=== PATIENT | female | born 1940 | race Caucasian/White ===

== ENCOUNTER 2019-05-11 16:58 | Inpatient (IN) | payer OTHER, BC ==
[~2019-05-11] VITALS: Ht 165.1 cm; Wt 62.3 kg
--- NOTE | 2019-05-11 18:10 | NUR ---
ADMITTED WHITE FEMALE PT. FROM [facility] ACCOMPANIED BY 2 AMBULANCE DRIVERS. PT. IS ALERGIC TO OXYCODONE. SHE IS ADMITTED FOR DEMENTIA WITH BEHAVIORAL DISTURBANCES, MDD, FIGHTING WITH STAFF. SHE IS A PT. OF DR. NICOLE BLANCHARD MD. SHE LIVES IN [place], [place]. SHE STATES SHE IS ALTHOUGH NO ONE ACCOMPANIED HER HERE. SHE WAS REPORTED TO BE AMBULATORY BY [facility] BUT WHEN SHE ARRIVED STAFF WITH HER STATED SHE IS STAND BY ASSIST OF 2 PEOPLE AND GETS AROUND IN A W/C. SHE IS ON A RGEULAR DIET. SHE IS ORIENTED X1 OR 2. SHE HAS LAST 6 TO 7 LBS IN THE PAST FEW MONTHS DUE TO POOR APPETITE. SHE REPORTS SHE GETS SHORT OF AIR WITH EXERTION. SHE DENIES A HISTORY OF SUICIDAL THOUGHTS OR ATTEMPTS AND DENIES ETOH OR DRUG USE/ABUSE. IN THE PAST FEW YEARS SHE STATES SHE HAS LOST TWO SIBLINGS. SHE IS CONFUSED AND CANNOT STATE WHERE WE ARE. SHE DOES STATE SHE WEARS GLASSES, FALSE TEETH BUT NO HEARING AIDES. SHE IS WEARING A SANTANA SHIRT, BULE PANTS AND WHITE SOX.
[2019-05-11] MEDS ORDERED: LISINOPRIL2.5 MG PO (18:19)
[2019-05-11] MEDS ORDERED: MIDODRINE HCL2.5 M1 (18:20)
[2019-05-11] MEDS ORDERED: PAXIL40 MG (18:21)
[2019-05-11] MEDS ORDERED: OXYBUTYNIN 5 MG5 M2 ×2 (18:21→18:31)
[2019-05-11 18:22] VITALS: BP 196/92
[2019-05-11] MEDS ORDERED: NUPLAZID34 MG (18:22)
[2019-05-11] MEDS ORDERED: PROPRANOLOL 20M20 M1 (18:26)
[2019-05-11] MEDS ORDERED: SEROQUEL 50 MG50 MG (18:27)
[2019-05-11] MEDS ORDERED: SINEMET 25-1001 EAC1 (18:29)
[2019-05-11] MEDS ORDERED: PLAVIX 75 MG TA75 MG (18:31)
[2019-05-11] MEDS ORDERED: ZETIA10 MG (18:32)
[2019-05-11] MEDS ORDERED: DIAZEPAM 2MG TAB2 MG (18:35)
[2019-05-11 19:42] VITALS: BP 136/72
--- NOTE | 2019-05-12 01:55 | NUR ---
1909-Report received from day nurse and care assumed. The pt. was in her bed awake and cooperative with assessment. A/O name, JACOB, said year was 1971. She said she wanted to stay in bed, awake, and no c.o. pain and fall precautions measures in place. She was anxious and talked about things in the hallway outside her room. Word salad mostly but was talkative with confusion and continued fearful/confused about things in the hallway with suspicion and redirections attempt. She said No leave me alone when asked to touch her to reposition her in bed and tried swinging. She was compliant with VS and said No, to taking her HS meds. She increasingly became more talkative word salad and combative with anyone getting close/touching her. She started to climb out of bed and then was placed into a wheelchair. She was taken to day area and sat with staff and nonredirectable and tried standing up and yelling with agitation. She tried biting, scratched, kicked staff. She was given Geodon 10 mg. IM prn for severe agitation at 2206.
--- NOTE | 2019-05-12 06:46 | NUR ---
She slept 0 hours tonite, Seroquel 50 mg. po prn given at 0130 ineffective. Incontinent urine, restless in the day area at times, talking word salad at times, refused 0700 med. shaking her head. She was combative with ADL's/incontinent care this morning, swinging/kicking/trying to bite.
--- NOTE | 2019-05-12 06:56 | NUR ---
She was combative with ADL's this morning, incontinent. She did not sleep tonite, while sitting in the day shaw. She refused 0700 meds. this morning. Seroquel 50 mg. po prn was not effetive. Fall precautions in place.
[2019-05-12 07:30] VITALS: BP 140/97
--- NOTE | 2019-05-12 09:27 | NUR ---
PT SITTING IN DINNING ROOM. PT WASN'T EATING VERY MUCH. PT TOOK MEDS WHOLE WITH WATER. PT NEEDED ENCOURAGEMENT TO TAKE MEDS FOR NURSE. PT DIDN'T SHOW ANY COMBATIVE BEHAVIOR. PT LUNGS CLEAR. PT IN W/C AT THIS TIME.
--- NOTE | 2019-05-12 10:20 | NUR ---
PT UP TO BSC X2 ASSIST. PT COOROPERATED AND DIDN'T RESIST CARE. PT BRIEF WAS WET DURING BSC.
--- NOTE | 2019-05-12 11:05 | NUR ---
Nutrition screening risk identified for possible wt loss hx 2-13 lb and poor intake prior admit. Pt newly admitted to [facility] and very limited information available in chart. Hx Parkisons. Has been combative this am and noted to not have slept well last evening. No Code status. Will start with adding Ensure Enlive supplement 1x day until intake trends are determined. Followup again on 05/15 for more complete nutrition assessment
--- NOTE | 2019-05-12 13:24 | NUR ---
SW met with pt's daughter and discussed d/c plans. They would like her to return to [facility] for skilled when she is d/c'd. SW provided education regarding placement concerns and possible barriers and to consider alternate placement if needed. The family still wants her to go back to the home with her spouse and not use LTC. Adelita also conpleted the intake psycho social via telephone with spouse Jeanette [phone].
[2019-05-12 20:37] VITALS: BP 184/85
--- NOTE | 2019-05-13 04:01 | NUR ---
ASSUMED CARE @ 19:15 ON 05/12/19. SITTING IN W/C WITH LAP BELT ON, SWATS AND HITS AT PEOPLE WHO APROACH WITHIN HER REACH. REFUSED MEDS WHOLE WITH WATER. REFUSED MEDS CRUSHED IN APPLESAUCE. PROVIDED CUP OF APPLESAUCE A SNACK, WITH MEDS CRUSHED IN APPLESAUCE, AND SHE REFUSED THAT ALSO. WHEN ATTEMPTED TO TRANSFER PATIENT TO BED, SHE BECAME COMBATITIVE WITH STAFF. NEW ORDER FOR ZYPREXA 5 MG IM Q 4 HOURS PRN AGITATION OBTAINED FROM SCOT LEMUS NP. PROVIDED @ 02:20. PATIENT WAS CALM IF NOT APROACHED, HOWEVER WHEN STAFF ATTEMPTED TO GIVE CARE, SHE WOULD BE COMBATITIVE AND HIT AND SCRATCH. CONTINUES TO SIT IN W/C IN DAY ROOM. CHAIR ALARM IN SEAT.
[2019-05-13 04:09] VITALS: BP 184/85
--- NOTE | 2019-05-13 11:05 | EKG ---
[address] [place] [address] ELECTROCARDIOGRAM REPORT Name: ADRIANA CRUZ ABHISHEK Room #: [facility] ADM IN M.R.#: [id number] Admission: 05/11/19 Attend Phys: Rj Santos DO Discharge: Date of : 42 Report #: [id number] THIS REPORT FOR: //name// [facility] Test Date: 2019-05-12 Test Time: 15:00:50 Pat Name: ADRIANA CRUZ Department: Room: [facility] Gender: F Prop And Effects Designer: Nicho FRANCOIS : 1940 Requested By: Rj Santos Order Number: [id number] MD: Maxwell Fuentes Measurements Intervals [place] Rate: 75 P: OK: QRS: 27 QRSD: 74 T: 219 QT: 396 QTc: 443 Interpretive Statements Probably sinus rhythm with short OK interval Abnormal T, consider ischemia, diffuse leads Compared to ECG 01/27/2001 17:05:31 No significant change was found Electronically Signed On 05-13-2019 11:05:12 CDT by Maxwell Fuentes [email or web address] <ELECTRONICALLY SIGNED> By: Maxwell Fuentes MD, FACC 05/13/19 1105 1500 1500 Maxwell Fuentes MD, FAC /EPI
--- NOTE | 2019-05-13 16:36 | NUR ---
HAS BEEN UP IN DAYROOM IN W/C, SHE HAS CONTINUED TO LEAN FORWARD AND HOLD ONTO THE TABLE LEGS OR TOUCHING THE FLOOR, SHE HAS REFUSED MOST OF HER MEALS AND HAS ONLY HAD A FEW BITES OF EACH MEAL, SHE DOES DRINK ABOUT HALF OF HER ENSURE, SHE TOOK MORNING MEDS CRUSHED WITH MUCH ENCOURAGEMENT, SHE DID HAVE A DAUGHTER VISIT TODAY AT AM VISITATION, WITH LOTS OF QUESTIONS, ATTEMPTED TO ANSWER HER QUESTIONS AND SHE DID STATE SHE "WISHED THERE WAS A PILL THAT WOULD MAKE HER NORMAL AGAIN" I DID EXPLAIN THAT HER CONDITION ISN'T ALWAYS MEDICATION RELATED, BUT IT COULD BE HER DISEASE PROCESS ADVANCING, SHE DID SAY THEY MAY BE UNREALISTIC TO BELIEVE IT IS ALL MEDICATIONS, SHE HAS BEEN LETHARGIC BUT AROUSABLE, SHE IS COMBATIVE AND RESISTANT TO CARE. CONTINUE TO MONITOR HER BEHAVIORS AND MONITOR SAFETY.
[2019-05-13 20:00] VITALS: BP 153/89
--- NOTE | 2019-05-13 23:19 | H ---
[facility] [place] [address] [address] HISTORY AND PHYSICAL Name: ADRIANA CRUZ Room #: 520B-B ADM IN M.R.#: [id number] Admission: 05/11/19 Attend Phys: Rj Santos DO Discharge: Date of : 42 Report #: [id number] THIS REPORT FOR: //name// CC: Rj Santos [facility] DATE OF SERVICE: 05/11/2019 INPATIENT PSYCHIATRIC EVALUATION PRIMARY PSYCHIATRIST: Rj Santos DO BAGGAGE PORTER: Dr. Morocho. REASON FOR ADMISSION: Fighting with staff, dementia, deprssion, anxiety, delusional behavior, combativeness. SOURCES OF INFORMATION: Interview with the patient and conversation with the on the phone. Medical records from [facility]. HISTORY OF PRESENT ILLNESS: A 78-year-old female brought [facility] from the [facility]. She was in a skilled stay there. The patient allegedly becoming increasingly combative. Little other information is available at this time. I am going to try and reach the who is dpoa later in the day. When I approach the patient, other than a basic "how you doing exchange" I am unable to get any useful information. I did get through to her late in the day and bascally her resistance with cares is what got her sent to [facility]. I discussed with his risk of antipsychotics and use of Olazipine. I let the Pimavanserin continue at this point if patient supplied given serotonin specific binding. Her home medications are carbidopa/levodopa 25/100 one-half tab every day by oral route, diazepam 2 mg 3 tabs every day by mouth, ezetimibe 10 mg oral daily, cough medicine 10 mL q. 8 hours p.r.n. cough, lisinopril 10 mg p.o. daily, midodrine 2.5 mg orally twice a day, oxybutynin 5 mg twice daily, paroxetine 40 mg daily, pimavanserin 34 mg oral every day, Plavix 75 mg p.o. daily, propranolol 20 mg oral daily, Seroquel 50 mg oral daily, Tylenol 650 mg q. 6 p.r.n. ALLERGIES: OXYCODONE. [address] [address] HISTORY AND PHYSICAL Name: ADRIANA CRUZ [facility] Room #: 520B-B [facility] IN M.R.#: [id number] Admission: 05/11/19 Attend Phys: Rj Santos, Discharge: Date of : 42 Report #: [id number] SOCIAL HISTORY: Nonsmoker, nondrinker. No drug abuse. Nursing notes indicate she was combative, delusional, inappropriate behavior, which is why sent for rehabilitation but last February became difficult to manage. PAST MEDICAL HISTORY: Include hypercholesterolemia, Parkinson disease, essential hypertension, history of stroke, calculus of kidney and ureter, tremor, functional urinary incontinence. PAST SURGICAL HISTORY: Artificial knee joint. Cholecystectomy. REVIEW OF SYSTEMS: From the ER was quite extensive but there at [facility], she essentially denied a 10-point. All the review of systems negative. LABORATORY DATA: CK was 840 today. Troponin was normal, which was negative. Laboratories from the ER, glucose 113, BUN 19, creatinine 0.77, sodium 145, potassium 3.6, chloride 106, bicarbonate 33.1, anion gap 9.5, calcium 9.6, AST 35, ALT 10, alkaline phosphatase 104, total protein 7.3, albumin 3.9, total bilirubin 0.6. Urine showed trace ketones, elevated urobilinogen, casts and calcium oxalate crystals. White count 5.55, hemoglobin 15.4, hematocrit 41.2, platelet count 175. Portable chest x-ray showed mild patchy bibasilar pulmonary infiltrates. She does have cough. ADDITIONAL HISTORY: I spoke with her . She has a 3-year history of dementia symptoms. Discussed with him the use of olanzapine. I feel since the patient is already on pimavanserin for behavior, we will have to watch that. She does not get pronounced dystonia. CK repeated coming down at 638. Made some med changes I will go over later. DEVELOPMENTAL HISTORY: Unknown. SOCIAL HISTORY: . 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 FAMILY HISTORY: Some additional input, 3 of her 5 siblings have had gallbladder surgery. VITAL SIGNS: Today 36.8 temperature, pulse 74, respirations ____, BP 140/97, O2 sat 98%. PHYSICAL EXAMINATION: A well-developed, in wheelchair, dystonia left arm, worse than right. She is only oriented to month, not place, not location, not further with time. [facility] [address] [place] [address] HISTORY AND PHYSICAL Name: ADRIANA CRUZ ABHISHEK [facility] IN M.R.#: [id number] Admission: 10/24/19 Attend Phys: Rj Santos DO Discharge: Date of : 42 Report #: [id number] MENTAL STATUS EXAMINATION: This is a well-developed, disheveled female appearing stated age. Attention limited. Concentration limited. Speech soft, slow. Thought process linear and limited. Thought content, poverty of thought. Some psychomotor retardation, some agitation. Denied SI or HI. Denied hopelessness, helplessness. Memory not formally tested, known to be impaired. Insight limited. Judgment limited. Fund of knowledge below average. FORMULATION: A 78-year-old female admitted for behavioral disturbances and major neurocognitive disorder. DIAGNOSES: Major neurocognitive disorder. Numerous comorbidities including Parkinson's disease, hypotension, hyperlipidemia. PLAN: Regarding medications, hold the Zetia due to increased CPK, carbidopa/levodopa 0.5 mg 3 times a day in the 25/100 strength. Plavix 75 mg p.o. daily, Pepcid 20 mg p.o. daily, Nuplazid 34 mg daily. We will continue the home supply. Lisinopril 10 mg p.o. daily, olanzapine was started 2.5 mg p.o. b.i.d. for impulse control and delusions. Paroxetine 20 mg. Plan to discontinue that at the end of rehab. Propranolol 20 mg p.o. daily, Seroquel 50 mg p.o. at bedtime p.r.n. for sleep. I will go ahead and discontinue that as we are starting her on olanzapine and Valium is virtually discontinued. ESTIMATED LENGTH OF STAY: 10-14 days. STRENGTHS: She has supportive family and a place to live. WEAKNESSES: Advancing age, neurodegenerative disorder, number of medical comorbidities. <ELECTRONICALLY SIGNED> By: Rj Santos DO 05/13/19 2319 1522 1600 Rj Santos DO /nt
--- NOTE | 2019-05-14 00:34 | NUR ---
ASSUMED CARE FROM DAY SHIFT PT SITTING IN NDAY ROOM IN RECLINER FEW WORD SPOKEN NO THAT NADE ANY SENSE, PO MEDICATION TAKEN WITH APPLESAUCE, PT HAD TO FED. 2 PERSON ASSIST TO BED MAX ASSIST , INCONTINET OF URINE, PT TURNED EVERY 2 HOURS, BED ALARM ON FOR SAFETY WILL CONTIUE WITH CURRENT PLAN OF CARE AND WILL REPORT CHANGES.
[2019-05-14 09:03] VITALS: BP 141/77
--- NOTE | 2019-05-14 13:43 | NUR ---
HAS BEEN UP IN DAYROOM IN RECLINER, SHE IS COOPERATIVE WITH MEDS AND MEALS SO FAR TODAY, SHE IS ALERT AND ORIENTED TO HER NAME, SHE ANSWERS QUESTIONS WHEN ASKED, STATED SHE IS FINE, MODERATE ASSIST TO TRANSFER TO CHAIR, SHE IS INCONTINENT OF BLADDER, HAS NOT PRESENTED ANY BEHAVIORAL PROBLEMS TODAY. CONTINUE TO MONITOR FOR BEHAVIOR, AND SAFETY ISSUES, ASSIST WITH CARES NEEDED.
[2019-05-14 19:52] VITALS: BP 143/68
[2019-05-15] VITALS: BP 143/68
--- NOTE | 2019-05-15 00:09 | NUR ---
PATIENT IS LAYING IN BED AND HAS STRIPPED OFF HER GOWN AND BRIEF AND COVERS. PATIENT REFUSED HER MEDS AND 2 OF US NURSES TRIED MULTIPLE TIMES AND WAYS TO HAVE HER TAKE THEM. PATIENT IS INCONTINENT AND BECAME VERY AGITATED WHEN CHANGING HER CLOTHES AND BED. PATIENT WAS ADAMNENT THAT SHE WAS NOT BEBETO TO TAKE HER MEDS. PT WOULD HOLD HER MOUTH CLOSED AND SPIT OUT MEDS. PATIENT LAYS QUIETLY IN BED REST OF TIME. BED IN LOW POSITION AND BED ALARM ON.
[2019-05-15 08:00] VITALS: BP 150/88
--- NOTE | 2019-05-15 08:00 | NUR ---
PT IN DINNING ROOM IN W/C. PT HAS HEAD BACK AND RUBBING FRONT OF NECK. PT NOT EATING BREAKFAST. PT WILL TALK, WHEN A SPOON GOES TO HER MOUTH SHE CLAMS UP. PT DID TAKE A FEW SIPS OF MILK VIA A STRAW.
[2019-05-15 08:09] VITALS: BP 151/85
--- NOTE | 2019-05-15 08:59 | NUR ---
PT NOT OPENING MOUTH FOR MEDS. PT CLAMPING MOUTH DOWN.
--- NOTE | 2019-05-15 09:30 | NUR ---
PT PATIENT IN RECLINER DUE TO HYPEREXTENTION OF NECK.
--- NOTE | 2019-05-15 12:51 | NUR ---
Nutrition assessment completed
--- NOTE | 2019-05-15 16:17 | NUR ---
SW spoke with pt's spouse and dght and they agreed to come to a family meeting on Wednesday at 3:30pm.
--- NOTE | 2019-05-15 18:18 | NUR ---
PT WAS AWAKE AFTER LUNCH. PT LAUGHING WITH NURSE AND TAKING NECTOR THICK LIQUIDS. PT ATE ENSURE PUDDING AND MAGIC CUP ICE CREAM. PT FAMILY CAME DURING VISITING HOURS AT 1600. PT AWAKE FOR FAMILY.
[2019-05-15 20:13] VITALS: BP 149/80
[2019-05-15 23:13] VITALS: BP 149/80
--- NOTE | 2019-05-16 03:40 | NUR ---
PT OUT WITH PEERS IN DAY ROOM. QUIET. AFTER HS SNACKS AND MEDS, ASSISTED TO ROOM. SOMEWHAT COMBATIVE AND RESISTANT TO ASSIST FROM STAFF. ONCE IN ROOM AND BED, SETTLED AND HAS BEEN RESTING, AND SLEEPING MOST OF THE NIGHT.
[2019-05-16 08:10] VITALS: BP 151/91
--- NOTE | 2019-05-16 08:25 | NUR ---
PT VERY LETHARGIC THIS AM. PT UNABLE TO TAKE IN FOOD OR MEDICATION. PT SNORING IN RECLINER.
[2019-05-16 09:04] VITALS: BP 151/91
--- NOTE | 2019-05-16 12:33 | NUR ---
PT ABLE TO EAT SOME LUNCH, PT AWAKE FOR LUNCH PT LAUGHING WITH NURSE.
--- NOTE | 2019-05-16 16:40 | NUR ---
PT HAS HAD X2 INCON URINE LARGE AMOUNT WITH FOUL SMELL. DR. ROSENBERG ORDERED STRAIGHT CATH FOR UA. INSERTED STRAIGHT CATH 15 [place]. PT TOLERATED PROCEDURE WELL. PT URINE WAS CLEAR WITH SEDIMENT.
[2019-05-16 16:56] LABS: URINE BILIRUBIN NEGATIVE (Negative); URINE BLOOD NEGATIVE (Negative); URINE CLARITY SL CLOUDY; URINE COLOR YELLOW; URINE GLUCOSE-RANDOM* NEGATIVE (Negative); URINE KETONES 1+ (Negative); URINE LEUKOCYTES-REFLEX NEGATIVE (Negative); URINE NITRITE-REFLEX NEGATIVE (Negative); URINE PROTEIN (DIPSTICK) NEGATIVE (Negative); URINE UROBILINOGEN >= 8.0 E.U./dl (0.2-1.0)
--- NOTE | 2019-05-16 17:00 | NUR ---
PT WHEELED OUT TO DINNING ROOM, PT ALERT ENOUGHT TO EAT. PT HAD SOME MEAT AND POTATOES. PT WAS FEEDING SELF ICE CREAM. ATTEMPTED TO GIVE PT THIN WATER, PT COUGHED. PT TOLERATES NECTOR THICK AT THIS TIME.
--- NOTE | 2019-05-17 05:43 | NUR ---
1909-Report received from day shift nurse and care assumed. She was sitting in the day area and was verbally aggressive with a hostile affect talking word salad and physically aggressive with ADL's at shift start. She then sat in the day room, refused to take her HS med. and then assisted to her bed and was not aggressive for those ADL's. She slept 7 hours and then awakened and sat on side of the bed alarm went off. She was not aggressive with ADL's and dressing this morning before going to the day room.
--- NOTE | 2019-05-17 09:38 | NUR ---
Sw spoke with pt's family and Dr Santos via telephone. Sw reported that if they wanted her to be in LTC they would have to get her Medicaid application started and meet with their elder care employment law attorney mary. They are ok with referrals being sent in their area, but would still like t try for skilled before going LTC.
--- NOTE | 2019-05-17 14:26 | NUR ---
Sw spoke with family and [facility]. SW sent updates to the NH and requested this pt be considered for residential.
--- NOTE | 2019-05-17 15:41 | NUR ---
NO LETHARGY OR SEDATION OBSERVED THROUGHOUT SHIFT. HAS BEEN SITTING IN DAYROOM WITH PEERS-BRIEF EPISODES OF AGITATION AND RESISTANCE REFUSING TO EAT FOR SPEECH THERAPIST PUSHING HER HAND AWAY AND SWEARING. DYPSHORIC IRRITABLE MOOD/AFFECT. COMPLIENT WITH TAKING AM MEDS. TRANSFERS WITH SBA X 1-2
[2019-05-17 21:08] VITALS: BP 116/70
--- NOTE | 2019-05-18 05:43 | NUR ---
1909-Report received from day shift nurse and care assumed. She was sitting in the day room around peers and staff talking with unrecognizable sentences/word salad, but had a pleasant affect. She was med. compliant with HS meds. and was not aggressive with cares and ADL's.
[2019-05-18 07:00] VITALS: BP 127/69
[2019-05-18 14:44] VITALS: BP 127/69
--- NOTE | 2019-05-18 14:49 | NUR ---
0704 Report received from overnight shift, Patient quiet cooperative somewhat tired. Patient ate breakfast took medication without incidence. Patient attends group but no participation.
[2019-05-18 20:14] VITALS: BP 127/68
[2019-05-19 00:19] VITALS: BP 127/68
--- NOTE | 2019-05-19 03:49 | NUR ---
PT RESTLESS AND PULLING AT CLOTHING. TRYING TO STRIP OFF SHIRT. RESPONDED WELL TO REDIRECTION. AFTER SNACKS PT TOOK HS MEDS W/O PROBLEM. MORE RELAXED THIS PM AND EVEN MORE ANIMATED AND SMILING. ESCORTED TO BED AND HAS SLEPT WELL THROUGH THE NIGHT TO THIS POINT.
[2019-05-19 07:13] VITALS: BP 138/77
--- NOTE | 2019-05-19 12:01 | NUR ---
PALMIRA contacted [facility] and spoke to Sheila about an early week d/c for pt. Sheila asked that PALMIRA provide updates and a medication list. PALMIRA faxed this information to [phone]. [facility] team will continue to follow pt during her stay.
[2019-05-19 12:10] VITALS: BP 138/77
--- NOTE | 2019-05-19 12:27 | NUR ---
0700 Report received from overnight shift, Patient cooperative ate breakfast, took medication without incidence. Patient had PT today and she ambulated very well with assistance. Will continue to monitor patient for safety.
--- NOTE | 2019-05-19 13:05 | NUR ---
Date of Admission: 05/11/19 Date of Activity Therapy Assessment: 05/14/19 Activity Goal: Increase engagement Initial Goal: 1 Group activity/day Weekly progress towards goal: On track Group participation level: Full to ability Behaviors observed: Patient's level of alertness has increased since admission. She is not combative and is rather pleasant with social interaction. Patient's conversation content remains disoriented. Plan: No change towards goal
[2019-05-19 20:21] VITALS: BP 117/61
--- NOTE | 2019-05-19 23:41 | NUR ---
PT OUT IN DAY AREA AT STERT OF SHIFT. RESTLESS AND SURLY TOWARD STAFF. REFUSED HS MED ATER SNACK. NOT WANTING TO GO TO BED. ATTEMPTING TO WHEEL INTO OTHER PT ROOMS. BECAME COMBATIVE WHEN REMOVED FROM ANOTHER ROOM. ESCORTED TO BED. REFUSED TO REMAIN IN BED AND BECAME INCREASINGLY AGITATED. IM OF OLANZAPINE 5MG INJECTED INTO RT BUTTOCK. PT CONTINUED TO ATTEMP TO GET OUT OF BED. PLACED BACK IN AND ESCORTED TO DAYROOM FOR CLOSER OBSERVATION.
[2019-05-20 00:30] VITALS: BP 117/61
--- NOTE | 2019-05-20 03:09 | NUR ---
PT HAS BEEN SURLY AND GENERALLY UNCOOPERATIVE. MOOD AND DEMEANOR HAVE BEEN COMBATIVE. CONTINUES TO REFUSE TO GO TO BED IN ROOM AND REMAINS UP IN DAYROOM WITH STAFF. RESPONSE TO EARLIER MEDICATION HAS BEEN POSITIVE, BUT PT REMAINS RESISTANT TO GOING TO HER ROOM AND BED.
[2019-05-20 07:16] VITALS: BP 120/64
--- NOTE | 2019-05-20 13:58 | NUR ---
Alert, sitting upright in wc. Obeys simple commands. Orientated to self only. Denies pain, SI/HI. Responding to questions sometimes appropriately, sometimes with confused speech. Took meds PO without difficulty. Pulling self in wc in hallways. Breath sounds clear t/o, bilaterally equal. Reg HR auscultated. Color pink with brisk capillary refill and palpable peripheral pulses. Small amt of urine per commode. Active bowel sounds over soft, rounded abdomen. 1000 Requesting to lay down in bed. More drowsy. Placed in recliner in day room with lap salvador. No s/o distress. 1300 Sleeping soundly in recliner in day room, snoring at times. Very difficult to awaken and refusing to open mouth to eat lunch. Ate 0% of lunch despite washing face, sitting up at table and verbal and tactile stimulation. 1400 Slightly more awake. Ate 4 oz ensure pudding and drank 4 oz thickened tea and several sips of water. Responding to questions and obeys simple commands. Goes right back to sleep in recliner. No s/o distress.
[2019-05-20 20:48] VITALS: BP 120/70
[2019-05-20 23:26] VITALS: BP 120/70
--- NOTE | 2019-05-20 23:29 | NUR ---
PATIENT IN BED SLEEPING WHEN I CAME ON SHIFT. THEY SAY SHE LAYED DOWN AROUND 1800. SHE HAS BEEN UP X 1 TO USE THE THE BSC AND VOIDED MODERATE AMOUNT. SHE DENIES PAIN. SHE IS ALSO INCONTINENT AND SHE WAS CLEANED AND NEW SHEETS AND CLOTHES PLACED ON HER. PATIENT WENT BACK TO BED. PATIENT IS SLEEPING NOW AND BED IN LOW POSITION AND BED ALARM ON. WILL CONTINUE TO MONITOR.
[2019-05-21 08:31] VITALS: BP 95/51
--- NOTE | 2019-05-21 12:55 | NUR ---
PALMIRA sent updates to [facility]
--- NOTE | 2019-05-21 14:00 | NUR ---
PATIENT CALM AND PLEASANT TODAY. ATE 75 % OF HER BREAKFAST AND 100 PERCENT OF HER LUNCH. PATIENT CONTINUES TO HAVE TREMORS OF UPPER EXTREMITIES BILATERALLY. UNABLE TO FOCUS AND NEEDS ENCOURAGEMENT AND REDIRECTION WITH MEALS. PATIENT ASKED ABOUT HER GRANDCHILDREN AND WANTED TO KNOW IF THEY WERE COMING TO VISIT. UNCERTAIN WHERE SHE IS AND CONFUSION EVIDENT WHEN QUESTIONS ASKED OF HER. MAKES NEEDS KNOWN. HAD TWO VISITS TO THE BATHROOM. TWO PERSON ASSIST TO AID TO COMMODE. UNABLE TO ASSIST MUCH WITH ADL'S. MEDICATION COMPLIANT - ABLE TO SWALLOW ONE PILL AT A TIME WITH THIN FLUID. APPEARED EXCITED AND EMOTIONAL WHEN CHIEFS SCORED ON TELEVISION - EXPRESSING DELIGHT. HAS BEEN AGREEABLE AND COOPERATIVE MOST OF THE DAY. FAMILY CALLED STATING WERE VISITING LATER THIS AFTERNOON.
[2019-05-21 20:23] VITALS: BP 109/71
[2019-05-22 00:55] VITALS: BP 109/71
--- NOTE | 2019-05-22 01:00 | NUR ---
PATIENT VERY AGITATED IN DINING ROOM THIS EVENING BEFORE BED. PATIENT WAS TRYING TO GET OUT OF CHAIR AND WALK AND SHE IS VERY UNSTEADY. SHE WAS YELLING AT PEOPLE WHEN THEY TRIED TO HELP REPOSITION HER IN THE CHAIR. SHE WAS TRYING TO BITE THIS NURSE'S ARM AND COMBATIVE. REPORT GIVEN SAID SHE WAS CALM AND VERY APPROPRIATE TODAY AND EVEN CHEERED FOR THE [employer] GAME. THEN PATIENT BECAME VERY COMBATIVE AND VOCAL AND YELLING OUT AFTER HER DAUGHTER CAME TO SEE HER. I SPOKE WITH PATIENT WHEN SHE WAS ACTING OUT AND TOLD HER I HAD HEARD SHE HAD A WONDERFUL DAY AND SHE DIDN'T START ACTING MEAN TO OTHERS UNTIL HER DAUGHTER CAME. I SAID, I THINK YOU'RE ANGRY WITH YOUR DAUGHTER. SHE LOOKED AT ME WITH ANGER IN HER EYES AND THEN THEY STARTED TO SOFTEN AND SHE LOOKED AT ME LIKE "YOU GOT IT." SHE CALMED FOR ME AND I WAS ABLE TO ASSIST HER WITH CARES AND GET HER TO BED. SHE TOOK HER HS MEDS WITHOUT ISSUE AND HAS BEEN CALM AND COOPERATIVE SINCE. I ASSISTED HER TO THE BSC SO SHE CAN VOID X 2. SHE IS ABLE TO STAND TO HELP TRANSFER TO SHORT DISTANCES. BED ALARM ON AND BED IN LOW POSITION. WILL CONTINUE TO MONITOR.
--- NOTE | 2019-05-22 04:18 | NUR ---
CAME BACK FROM LUNCH AND 2 FOOD SERVICE SPECIALIST'S WERE WORKING WITH PATIENT TO GET HER UP TO BSC. SHE WAS SOUNDING IRRITATED WITH THEM. I WENT IN TO HELP AND WE GOT HER BACK TO BED BUT SHE WAS AGITATED AND LITTLE UPSET. GOT PATIENT COMFORTABLE IN BED AND THEN GAVE HER TYLENOL 650MG D/T GENERALIZED DISCOMFORT AND TO HELP HER REST BETTER. PATIENT TOOK IT CRUSHED IN PUDDING AND WITH HONEY THICKENED LIQUIDS. PATIENT IS NOW SLEEPING SOUNDLY AND BODY AND FACE LOOK RELAXED. BED ALARM ON AND IN LOW POSITION.
--- NOTE | 2019-05-22 06:44 | NUR ---
PATIENT ALERT AND AWAKE THIS MORNING. SHE ASKED TO BRUSH HER TEETH AND FOR A GLASS OF TEA. SHE HAS BEEN ON BSC X2 AND VOIDED. PATIENT HAS BEEN PLEASANT AND VISITED WITH HER ROOMMATE. SHE IS NOW UP IN THE DAYROOM DRINKING HER TEA.
--- NOTE | 2019-05-22 11:27 | NUR ---
SW spoke with daughter about d/c on Wed. Still aiming for a skilled stay. SW also reinforced that pt needs to apply for medicaid and they need to contact their civil litigation attorney for this. [facility] is aware that this will be an out of pocket expense. Dght is going to visit [facility] today and start that process to confirm the admission. Family is fully aware that if [facility] does not take him that he may need to go home or at least consider anotehr LTC
--- NOTE | 2019-05-22 13:55 | NUR ---
Nutrition follow up: Pt seen in day area on [facility] unit prior to lunch. Remains on pureed diet w/ honey thick liquids. Has been receiving a magic cup or Ensure pudding w/ each meal. Plan to change to magic cup BID and send regular pudding w/ Beneprotein pkt or another soft food item for improved taste. Pt has dementia. She talked some; unsure if she understood. Identified soft protein like yogurt, cottage cheese, eggs, etc. She eats 30-100% of meals, completing 30-50% of recent Am supplements. Unlikely to significantly change nutritional intake amts/habits d/t condition, thus with a few supplement changes and Beneprotein addition into 1-2 meals a day, will change to low risk. Wt remains very healthy otherwise, BMI 22.6. Continue to monitor.
[2019-05-22 19:56] VITALS: BP 114/54
--- NOTE | 2019-05-22 23:51 | NUR ---
RECEIVED REPORT AND ASSUMED CARE @ 19:15. IN W/C WITH LAP LINDSEY IN PLACE, SEATED IN THE DAY ROOM. REFUSED HS MEDS, INCLUDING OLANZAPINE PO. REQUESTED TYLENOL FOR PAIN, THEN REFUSED IT. ANSWERED QUESTIONS WITH WORD SALAD RESPONSES. ORIENTED TO SELF ONLY. RESISTS CARE, HITTING AND BITING STAFF. HOSTILE AFFECT. MOOD AND DEMOR UNCOOPERATIVE AND COMBATITIVE. WITH INCREASED AGITATION AND WHEELING SELF INTO OTHER RESIDENT'S ROOMS, GIVEN IM ZYPREXA 5 MG IN THE R DELTOID. CONTINUES AGRESSION ON PEERS AND STAFF. AFTER 45 MINUTES, ALLOWS SELF TO BE TRANSFERRED TO BED. BED IN LOW POSITION, BED ALARM SET. WILL CONTINUE TO MONITOR Q 12 FOR PATIENT SAFETY.
[2019-05-23 01:32] VITALS: BP 114/54
--- NOTE | 2019-05-23 06:51 | NUR ---
BECAME PHYSICAL HOSTILE, HITTING AND BITING STAFF WHILE GIVING CARE. IM ZYPREXA 5 MG GIVEN FOR AGRESSIVE AND AGITATIED
[2019-05-23 08:00] VITALS: BP 105/65
--- NOTE | 2019-05-23 08:46 | NUR ---
Adelita spoke with dght AND SPOUSE on the phone and provided an update. This included encouraging them to apply for her medicaid immediately as she will need to be placed in LTC after her skilled stay. Adelita also asked that dght would visit [facility] to confirm the readmission and transisiton to LTC if needed. Adelita then called and spoke with admissions at [facility] and they are willing and have told the famiyl this too, that this pt is going to re admit to them, once her behaviors have been modified. ADELITA reported that she is still geetting pt and we expect to d/c after a few " good days" [facility] was satisfied with this response.
--- NOTE | 2019-05-23 09:27 | NUR ---
0700: Report from noc shift, care assumed. [id number]: Sitting in w/c in DR @ table, pleasant with nurse upon introduction, hallucinations about using tools to work on w/c with scrambled words to speech noted, oriented to name only. Allows this nurse to assist with meal set-up, takes meds w/o difficulty. Dr. Santos here, update given for over night behavior. Call rec from dtr, update given, dc plans cx for today due to need for behavior monitoring. Takes thickened liquids w/o difficulty, requires encouragement to eat and drink fluids.
[2019-05-23 09:37] VITALS: BP 105/65
[2019-05-23 14:12] LABS: ABSOLUTE NEUTROPHILS 4.5 thou/uL (1.4-8.2); BASOPHILS 0.5 % (0.0-2.0); EOSINOPHILS 1.7 % (0.0-3.0); HEMATOCRIT 39.2 % (37.0-47.0); HEMOGLOBIN 12.8 gm/dL (12.0-15.0); LYMPHOCYTES 18.2 % (24.0-44.0); MCH 28.6 pg (26.0-34.0); MCHC 32.7 g/dL (28.0-37.0); MCV 87.4 fL (80.0-100.0); MONOCYTES 7.5 % (1.0-8.0); PLATELET COUNT 219 thou/uL (150-400); POLYS 72.1 % (36.0-66.0); RBC 4.48 mil/uL (4.20-5.00); RDW 14.8 % (10.5-14.5); WBC 6.3 thou/uL (4.0-11.0)
[2019-05-23 14:23] LABS: CALCIUM 10.6 mg/dL (8.5-10.1); CREATININE 0.8 mg/dL (0.6-1.0); POTASSIUM 3.4 mmol/L (3.5-5.1)
--- NOTE | 2019-05-23 18:36 | NUR ---
Patient irritable upon medication administration, pt refused 1800 zyprexa.
[2019-05-23 23:34] VITALS: BP 111/58
[2019-05-24 07:30] VITALS: BP 115/61
--- NOTE | 2019-05-24 07:40 | NUR ---
1909-Report received from day shift nurse and care assumed last evening. She was laying down in her bed at the beginning of nite, but tried getting out of the bed after several minutes, not sleepy, notably visual hallucinating, talking to herself and disrobing. She sat in the day area then and was not sleepy the rest of the nite. She slept less than 2 hours tonite total. She was agitated with staff at 0400 when she was disrobing in the day shaw, trembling with agitation, resistive to staff's cares putting clothing back on and was given then Olanzapine 5 mg. IM. It was effective as she was less anxious later, notably tired body this morning but refusing to lie down in her bed, talking word salad wide awake though. UA clean catch obtained this AM.
[2019-05-24 07:43] LABS: URINE BILIRUBIN NEGATIVE (Negative); URINE BLOOD 3+ (Negative); URINE CLARITY CLOUDY; URINE COLOR YELLOW; URINE GLUCOSE-RANDOM* NEGATIVE (Negative); URINE KETONES TRACE (Negative); URINE PROTEIN (DIPSTICK) 1+ (Negative); URINE SPECIFIC GRAVITY >= 1.030 (1.005-1.035); URINE UROBILINOGEN 0.2 E.U./dl (0.2-1.0)
[2019-05-24 07:50] LABS: URINE LEUKOCYTES-REFLEX 3+ (Negative); URINE NITRITE-REFLEX POSITIVE (Negative)
[2019-05-24 08:20] LABS: BACTERIA-REFLEX >30 Many /HPF (None Seen); CASTS None Seen /LPF (None Seen); CRYSTALS None Seen /LPF (None Seen); SQUAMOUS 4-10 Moderate /LPF (0-3); URINE RBC 3-10 Few /HPF (0-2); URINE WBC-REFLEX >25 Many /HPF (0-5)
[2019-05-24 11:27] VITALS: BP 115/61
--- NOTE | 2019-05-24 15:29 | NUR ---
0700 Assumed care this morning. Pt ready for breakfast. Calm.Pt took medications with no issues. paricipated with the therapy group. Pericare done 1200 Calm. Pericare done. patient had lunch and other medication with no issue. 1528 Calm. AT the table relaxed. will continue [facility] plan of care.
[2019-05-24 20:11] VITALS: BP 93/60
--- NOTE | 2019-05-25 06:06 | NUR ---
1909-Report received from day shift nurse and care assumed last evening. She was alert, talkative to staff with a bright affect last evening and in the nite also. She was continent of urine. She talked about wanting to know who won the lottery, and putting up a jersey tree, talked with sentences appropriately most times answering back or conversing, not word salad as much. Per order she was given at midnite Zyprexa 5 mg. po prn for insomnia when she was still awake at that time. At about 0200 she was sound asleep and was put in bed thereafter and snored softly. Slept total 5.6 hours so far. Not aggressive with cares or hostile, bright, talkative.
[2019-05-25 09:25] VITALS: BP 154/79
--- NOTE | 2019-05-25 14:19 | NUR ---
Date of Admission: 05/11/19 Date of Activity Therapy Assessment: 05/14/19 Activity Goal: Increase engagement Initial Goal: 1 Group activity/day Weekly progress towards goal: On track Group participation level: Varies Behaviors observed: Patient participation varies based on level of alertness. When alert, patient interacts pleasantly with peers despite communication difficulties (word salad). Patient has not exhibited agitation during group participation. Plan: No change towards goal
--- NOTE | 2019-05-25 16:08 | NUR ---
Very sleepy and resistant to getting out of bed. Sits with head down on table, refused AM meds initially but then took about 45 min later without difficulty. Orientated to self only. Unable to determine SI/HI, confused speech only. Breath sounds clear t/o, bilaterally equal. Color pink with brisk capillary refill and palpable peripheral pulses. Slight amount of edema in lower extremities. Reg HR auscultated. Active bowel sounds over soft, rounded abdomen. 1200 Much more awake and more verbal. Talking about a check and CPA. Confused speech. Went to group. 1530 Michaelle RT reports that Raymond thought that another pt was her and was grabbing on to his WC. More agitated with confused speech talking about her father. Olanzapine given PO without difficulty. Continues to pull on table and WC. States she needs to go to bathroom. Up to commode, moderate amount of concentrated urine per commode. Perineal care done. In dayroom in WC.
--- NOTE | 2019-05-25 22:50 | NUR ---
Care assumed of patient at 1915: Patient alert and oriented to person. Patient seated in w/c in the dayroom. Patient restless and fidgeting with furniture. Patient provided activity apron but has not seemed interested. Patient disrobing self multiple times, needing assistance to put clothing back on. Patient declined HS snack and HS medication. 2 nursing staff attempted to provide medication. Patient stated "I'm gonna slap you and throw this in your lap" while attempting to provide HS medication in yogurt. Patient did become physically aggressive, grabbing, pinching and attempting to hit staff while assisting her put her clothing back on. Patient presents with blunted affect, rambling clear words. Patient denies pain or discomfort. Denies SI/HI/AH/VH. No s/s of delusional or paranoia behaviors observed. Patient is currently awake in day room. Patient has declined to be assisted to bed at this time.
--- NOTE | 2019-05-26 15:17 | NUR ---
Adelita sent referrals to : [facility], [place] , [facility], [place], [place], [facility], [place] , [place] ( declined) , [facility], [facility], [facility], [place], [facility], [facility], [facility], [facility], [place], [facility]. Adelita also called and spoke with pts requesting a family meeting and she stated she would check with her step dght and call back with a time
--- NOTE | 2019-05-26 15:23 | NUR ---
PALMIRA sent DA 124 to [facility] for screening
[2019-05-26 17:43] VITALS: BP 133/67
--- NOTE | 2019-05-26 17:53 | NUR ---
THE PATIENT HAS BEEN ASLEEP IN THE DAY ROOM THROUGH OUT THE DAY. SHE DID AWAKEN A FEW TIMES TO TAKE MEDICATIONS AND EAT MEALS HOWEVER SHE WENT BACK TO SLEEP. THE PATIENT WAS UP ALL NIGHT ACCORDING TO [employer]ANCIAL INTERNSHIP NURSES. SHE HAS BEEN QUIET AND COOPERATIVE WITH STAFF AND COMPLIANT WITH MEDICATIONS. THE PATIENT WAS PUT IN BED TO REST AND SLEEP.
[2019-05-26 19:20] VITALS: BP 117/57
--- NOTE | 2019-05-27 00:46 | NUR ---
Care assumed of patient at 1915: Patient seated in recliner at start of shift. Patient alert and oriented to person. Patient somewhat irritable during assessment but was easily re-directed. Patient made more eye contact this evening than previous shifts. Patient ate 100% HS snack. Patient took HS medication without difficulty. Patient gave an occasional smile and appeared to try to initiate conversation with staff. Patient awake for a few hours while sitting in chair. Staff attempted to assist patient to bed a couple different times in which she stated she wasn't ready. Patient was able to fall asleep while sitting in recliner and appears to be resting well. Patient has a pillow and blanket with her. Patient appears to rest better sitting in recliner rather than laying in bed. Patient denies SI/HI/AH/VH. No s/s of delusional or paranoia behaviors. Patient did try to grab arm of nurse during assessment but was easily re-directed.
[2019-05-27 08:19] VITALS: BP 133/80
[2019-05-27 12:57] VITALS: BP 133/80
[2019-05-27 13:12] VITALS: BP 133/80
[2019-05-27 19:40] VITALS: BP 142/74
--- NOTE | 2019-05-27 22:31 | NUR ---
Care assumed of patient at 1915: Patient seated in recliner in day room at start of shift. Patient calm, pleasant and cooperative. Patient compliant with nursing assessment. Patient alert and oriented to person. Pleasantly confused and forgetful. Patient interactive with staff. Patient smiling and waving. Patient fed self 3 different snacks, eating 100%. Took HS medication whole without difficulty. Patient asked what the medication was. Nurse explained that it is her antibiotic. Patient stated "I have an infection?" Nurse educated patient that she has a urinary tract infection. Patient then took medication without issue. No s/s of adverse effects noted at this time. Patient denies pain or discomfort. Patient did report that she needed to use the bathroom. Patient continent of bladder at bedside commode. Patient then stated "I'm ready for bed, can you get me clean clothes?" Nurse assisted patient to bed with mod assist x1. Patient denies SI/HI/AH/VH. No s/s of delusional or paranoia behaviors. No aggression, agitation or irritability observed. Patient has made a significant improvement over the last 3 nights for this nurse. Patient is resting quietly in bed at this time. This nurse spoke with patient's daughter to provide update. Daughter stated she would try to visit tomorrow.
[2019-05-28 07:42] VITALS: BP 102/60
--- NOTE | 2019-05-28 19:31 | NUR ---
COOPERATIVE WITH REQUESTS OF STAFF THIS AM-TAKES AM MEDICATIONS WHOLE WITHOUT RESISTANCE AND FED SELF BREAKFAST AND LUNCH-SITTING QUIETLY IN DAYROOM WITH FEMALE PEER-ASSISTED TO BR Q 2-3 HOURS AND REQUIRES SBA X1-2-LARGE BM IN COMMODE THIS AM-DENIES PAIN/DISCOMFORT. INCREASE IN CONFUSION AND RESTLESSNESS AFTERAPPROX 1500 AND DID REFUSE 1800 ZYPREXA DESPITE MULTIPLE ATTEMPTS-SSUSPICIOUS OF STAFF STATING "I ALREADY TOOK MY MEDICINE I DON'T KNOW WHAT THAT POISON IS"
[2019-05-28 20:11] VITALS: BP 102/59
--- NOTE | 2019-05-29 01:46 | NUR ---
ASSUMED CARE @ 19:15 ON 05/28/19, IN W/C IN DAY ROOM. REPEATEDLY ASKING FOR MONEY TO GO HOME WITH. CONFUSED AND AGITATED. DAUGHTER MARILIN CALLED AND ADVISED OF PT REFUSAL TO TAKE 1800 MEDS. PT TOOK LAP LINDSEY OFF AND STANDING UP. ON STAND BY X1 ASSIST TO AMBULATE. TRANSFERRED TO RECLINER. TOOK HS MEDS @ 20:35 IN PUDDING. PT REFUSED ASSESSMENT. REFUSING TO GO TO BED. UP IN RECLINER WITH LAP LINDSEY ON. WILL CONTINUE TO MONITOR Q 12 MINUTES FOR PATIENT SAFETY.
[2019-05-29 05:45] VITALS: BP 102/59
[2019-05-29 09:04] VITALS: BP 125/63
--- NOTE | 2019-05-29 10:54 | NUR ---
Nutrition followup: PO intake highly variable, refusal to 100% of meals. Average intake of supplements is 50% of magic cup BID and regular pudding with beneprotein. Pt's dysphagia is slightly improved and diet is upgraded to mechanically altered chopped, thin liquids. Trial ensure in place of a magic cup daily. Last weight 137# on 05/27. BMI WNL. Continue as low nutrition risk
--- NOTE | 2019-05-29 13:26 | NUR ---
PALMIRA and Dr Santos spoke with family regarding discharge, and to follow up about medicaid. D/C expected by Wed.
[2019-05-29 13:42] VITALS: BP 125/63
--- NOTE | 2019-05-29 18:23 | NUR ---
THE PATIENT HAS BEEN RESTLESS MOST OF THE DAY. SHE AMBULATED WITH PT TODAY. THE PATIENT DID AMBULATE WITH A WALKER. SHE WAS ADMINSTERED AN INJECTION DUE TO HER RESISTANCE. PATIENT WOULD NOT SIT DOWN. SHE ATTEMPTED TO WALK THE HALLWAYS AND DAY ROOM. SHE IS NOW QUIET AND CALM.
[2019-05-29 19:08] VITALS: BP 89/57
--- NOTE | 2019-05-30 05:51 | NUR ---
SLEPT 7 HOURS OVERNIGNT
[2019-05-30 09:09] VITALS: BP 116/62
[2019-05-30 11:19] LABS: URINE BILIRUBIN NEGATIVE (Negative); URINE BLOOD NEGATIVE (Negative); URINE CLARITY SL CLOUDY; URINE COLOR YELLOW; URINE GLUCOSE-RANDOM* NEGATIVE (Negative); URINE KETONES NEGATIVE (Negative); URINE LEUKOCYTES 3+ (Negative); URINE NITRITE NEGATIVE (Negative); URINE PROTEIN (DIPSTICK) NEGATIVE (Negative); URINE UROBILINOGEN 0.2 E.U./dl (0.2-1.0)
[2019-05-30 11:42] LABS: SQUAMOUS >10 Many /LPF (0-3)
[2019-05-30 11:43] LABS: AMORPHOUS URATES Few /LPF (None Seen); BACTERIA 1-9 Few /HPF (None Seen); HYALINE CASTS 0-3 Few /LPF (None Seen); URINE RBC None Seen /HPF (0-2); URINE WBC >25 Many /HPF (0-5)
--- NOTE | 2019-05-30 11:52 | NUR ---
VISIBLE IN DAYROOM SITTING QUIETLY WITH PEERS-PLEASANT UPON INITAL APPROACH THIS AM AND COMPLIENT WITH TAKING AM MEDICATIONS WITHOUT RESISTANCE, CONVERSATION AT TIMES RAMBLING AND NON-GOAL DIRECTED-ORIENTED TO NAME ONLY. DENIES PAIN/DISCOMFORT. DID AMBULATE WITH PT IN HALLWAYS-TRANSERS FROM CHAIR TO BED/COMMODE WITH SBAX1. REPEAT UA SENT TO LAB PER MD ORDER
[2019-05-30 20:09] VITALS: BP 103/56
--- NOTE | 2019-05-31 04:20 | NUR ---
Care assumed of patient at 1915: Patient alert and oriented to person. Patient pleasantly confused and forgetful. Patient seated in w/c in day room at start of shift. Patient interacting appropriately with staff. Calm, pleasant and cooperative with nursing assessment. Patient took HS medication whole without difficulty. Patient took last dose of abx tx for the dx of UTI. No s/s of adverse effects noted at this time. Patient did report that she was tired and would like to lay down. Patient declined HS snack. Patient assisted to her room. Continent of bladder x3 to the bedside commode this shift. Patient has been making all wants and needs known verbally. Patient smiling and making good eye contact when speaking with staff. Patient denies pain or discomfort. Denies SI/HI/AH/VH. No s/s of delusional or paranoia behaviors. Patient was able to fall asleep without difficulty and has been resting quietly this shift.
[2019-05-31 10:03] VITALS: BP 108/49
[2019-05-31 10:14] VITALS: BP 108/49
[2019-05-31 11:39] VITALS: BP 108/49; BP 158/79
--- NOTE | 2019-05-31 14:25 | NUR ---
ADELITA sent updates last night and again this afternoon to [facility] and left several VM asking for a grape picker time for tomorrow. Adelita also spoke with her dght and she was going to stop by the [place] and get this information.
--- NOTE | 2019-05-31 16:43 | NUR ---
THE PATIENT WAS OUT IN THE DAY ROOM DURING BREAKFAST BUT SHE RETURNED TO HER ROOM AND WAS RESTING QUIETLY. OT WORKED WITH THE PATIENT TODAY AND OT EXPRESSED THAT THE PATIENT PERFORMED VERY WELL. SHE HAS BEEN AMBULATING WITH ASSIST AND SHE PERFORMED HER ADL'S VERY WELL ACCORDING TO THE OCCUPATIONAL THERAPIST. SHE CONTINUES TO REST IN BED AND HAS BEEN ANSWERING QUESTIONS APPROPRIATELY. SHE HAS BEEN COOPERATIVE AND CALM. TRANSFERING PATIENT SHE STANDS AND HELPS WITH HER MOBILITY TO MOVE.
[2019-05-31 19:48] VITALS: BP 116/58
[2019-05-31 23:39] VITALS: BP 108/49
--- NOTE | 2019-06-01 03:10 | NUR ---
PT OUT IN DAY AREA AT START OF EVENING. QUIET AND CONFUSED. REAMBLING MOSTLY INCOHERANT SPEECH. BECAME INCREASINGLY RESTLESS AND COMBATIVE. REFUSING TO GO TO OR STAY IN BED. PLACED IN WC WITH LAP LINDSEY, IN DAY ROOM AND NEEDED OLANZAPINE 7.5MG IM TO LT BUTTOCK. HAS REMAINED AWAKE IN CHAIR IN DAYROOM AND HAS SETTLED.
[2019-06-01 08:58] VITALS: BP 121/56
--- NOTE | 2019-06-01 10:45 | NUR ---
Pt discharging to [facility] today with a pick and shovel worker time of 1:30pm . This was reported to Jeanette Mcdonough [phone]. Adelita made a packet and sent this to [facility] [phone].
[2019-06-01] MEDS ORDERED: QUINU5 PD PO (12:01)
[2019-06-01] MEDS ORDERED: ZYPREXA 5 MG TAB5 M1 PO ×3 (12:03→12:04)
--- NOTE | 2019-06-01 13:53 | NUR ---
PT DAUGHTER RISSA RODRIGUEZ CONTACTED VIA PHONE AND DC MEDS/FU REVIEWED-PERSONAL BELONGINGS INVENTORY LIST REVIEWED WITH DAUGHTER-HOME MEDS BROUGHT IN BY FAMILY AND WEDDING RING IN SECURITY RETRIEVED AND SENT IN SEPERATE ENVELOPE-HANDED TO ASSISTANT MANAGER AT TIME OF DC- PT IS COOPERATIVE AND ALERT AT TIME OF DISCHARGE. UNIT STAFF ACCOMPNIED PT TO [facility] VIA -PERSONAL BELONGINGS SENT. REPORT CALLED TO LEORA AT [facility] AT APPROX 1200
--- NOTE | 2019-06-02 08:28 | D ---
[facility] [place] [address] [address] DISCHARGE SUMMARY Name: ADRIANA CRUZ Room #: 520B-B [facility] M.R.#: [id number] Admission: 05/11/19 Attend Phys: Rj Santos DO Discharge: 06/01/19 Date of : 42 Report #: [id number] THIS REPORT FOR: //name// CC: Rj Santos [facility] DATE OF SERVICE: 06/01/2019 PSYCHIATRIC DISCHARGE SUMMARY ATTENDING PSYCHIATRIST: Rj Santos DO. AUDIO VIDEO TECHNICIAN AT THE TIME OF DISCHARGE: Dirk Morocho MD DISCHARGE DIAGNOSES: Major neurocognitive disorder, likely due to Alzheimer's disease with behavioral disturbance, Parkinson's disease. DISCHARGE DIET: Mechanical altered, chopped with Ensure Enlive at breakfast, Magic cup at lunch, pudding at dinner. The patient will be discharging to shelter facility for skilled PT, OT at [facility] where she came from. After she is done skilled, I expect her to be a candidate for long-term care. DISCHARGE MEDICATIONS: As follows: Lisinopril 5 mg oral p.o. daily for hypertension; olanzapine 10 mg oral daily at 9:00 a.m., 12.5 mg daily at 3:00 p.m., 10 mg p.o. q. 6 p.r.n. for agitation and psychosis; Sinnememt 25/100 one tablet daily and Plavix 75 mg p.o. daily for anticoagulation. The patient's psychiatric medical care will be done in [facility]. REASON FOR ADMISSION: Back on 05/11/2019 is as follows: Evidently was fighting with staff at [facility] and was brought to the [facility]; resistance with care was a big issue. HOSPITAL COURSE: Indeed similar to the inciting issues her resistance to care as well as difficult to make progress with, also there was some hesitancy at the point of the [facility] to take the patient back. Also, whether the patient could go to [facility] or not, were factors for her psychiatric admission length with more duration than I had hoped. Nonetheless, the patient did come around as being accepted of most care but then she will always have the bad days. The patient on the day of discharge denies suicidal or homicidal ideation; no auditory, visual, or tactile hallucination, stable for less restrictive setting. [facility] [address] [place] [address] DISCHARGE SUMMARY Name: ADRIANA CRUZ [facility] Room #: 520B-B [facility] IN M.R.#: [id number] Admission: 05/11/19 Attend Phys: Rj Santos, Discharge: 06/01/19 Date of : 42 Report #: [id number] EKG this admission showed a rate of 75, QTC 443. LABORATORY DATA: The pertinent laboratories this admission, CBC was within normal limits on 05/23/2019 and also 05/24/2019 with electrolyte abnormalities, calcium 10.6, glucose 139, estimated GFR 70, BUN 23, carbon dioxide 33, potassium 3.4. Urinalysis, there were some bad urines around 05/24/2019. Microbiology for this patient showed E. coli. She was treated with nitrofurantoin course, completely treated with 14 doses of Macrobid 100 mg b.i.d. She was treated with antibiotic Macrobid sensitive. PHYSICAL EXAMINATION: VITAL SIGNS: On the day of discharge are as follows: Temperature 36.2, pulse 82, respirations 12, BP 121/56, O2 sat at 94%. MUSCULOSKELETAL: Seated in wheelchair. MENTAL STATUS EXAMINATION: This is a well-developed, disheveled female appearing stated age. Attention limited. Concentration limited. Speech is normal rate. Thought process linear and limited. Thought content, relative poverty of thought. No psychomotor agitation or psychomotor retardation. Denied SI or HI. Denied hopelessness and helplessness. Denied auditory, visual, or tactile hallucinations. Memory not formally tested. Insight limited. Judgment limited. Fund of knowledge below average. PROGNOSIS: For this patient is guarded due to her major neurocognitive disorder and physical limitations. <ELECTRONICALLY SIGNED> By: Rj Santos DO 06/02/19 [id number] Rj Santos DO /nt
== END 2019-06-01 14:09 | DRG 57 ==
LOC: SBH
PROVIDERS: ADMIT Psychiatry & Neurology Psychiatry
DX: G30.9 Alzheimer's disease, unspecified (principal); F01.51 Vascular dementia, unspecified severity, with behavioral disturbance; F02.81 Dementia in other diseases classified elsewhere, unspecified severity, with behavioral disturbance; N39.0 Urinary tract infection, site not specified; G20 Parkinson's disease; E78.00 Pure hypercholesterolemia, unspecified; I10 Essential (primary) hypertension; Z96.659 Presence of unspecified artificial knee joint; F32.9 Major depressive disorder, single episode, unspecified; E78.5 Hyperlipidemia, unspecified; F41.9 Anxiety disorder, unspecified; I95.1 Orthostatic hypotension; N32.81 Overactive bladder; Z66 Do not resuscitate; Z88.6 Allergy status to analgesic agent; Z86.73 Personal history of transient ischemic attack (TIA), and cerebral infarction without residual deficits; Z90.49 Acquired absence of other specified parts of digestive tract; Z79.899 Other long term (current) drug therapy
CPT/HCPCS: 10880